=== PATIENT | male | born 1985 | race Two or more races ===

== ENCOUNTER 2016-06-08 18:47 | Emergency (ER) | payer SELFPAY ==
[~2016-06-08] VITALS: Ht 210.8 cm; Wt 86.2 kg
[~2016-06-08 18:47] MED LIST: CIPROFLOXACIN500 M2 ORAL; IBUPROFEN600 MG ORAL; NKM
[2016-06-08 19:24] VITALS: BP 154/91
[2016-06-08] MEDS ORDERED: Fluorescein Strips LEFT EYE ONE (19:30)
[2016-06-08] MEDS ORDERED: Proparacaine 0.5% Opth Soln 15ml LEFT EYE ONE (19:30)
[2016-06-08] MEDS ORDERED: OCUFLOX5 ML OP (20:08)
[2016-06-08 20:18] VITALS: BP 114/82
--- NOTE | 2016-06-08 20:39 | Emergency Room Report ---
History of Present Illness General Chief Complaint: Eye Problems Source: Patient Present Illness HPI The patient is a 30-year-old male presenting for left eye pain which began yesterday. The patient states that she was wearing safety goggles and using metal for sauldering but he states he experienced Moses which flew into the left eye. Pain is described as a 10 out of 10 burning sensation and does not radiate from the eye. Pain is relieved when he closes his eye. He denies any previous injury to the eye. He states that he copiously irrigated the eye after the injury. He has not noticed any bleeding or discharge from the eye. He denies any other symptoms Allergies: Coded Allergies: ACETAMINOPHEN (Verified Allergy, Unknown, 02/22/15) Patient History Past Medical History: see triage record Pertinent Family History: none Reviewed Nursing Documentation: PMH: Agreed, PSxH: Agreed Nursing Documentation-PMH Past Medical History: No History, Except For Hx Hypertension: Yes Review of Systems All Other Systems: negative except mentioned in HPI Physical Exam Vital Signs Date Time Temp Pulse Resp B/P Pulse Ox O2 Delivery O2 Flow Rate FiO2 06/08/16 19:20 98.2 78 18 154/91 100 Room Air Sp02 EP Interpretation: reviewed, normal General Appearance: no apparent distress, alert, GCS 15, non-toxic Head: normocephalic, atraumatic Eyes: left eye fluoroscene uptake - 1cm linear abrasion to medial conjunctiva, bilateral eye EOMI, bilateral eye PERRL ENT: hearing grossly normal, normal pharynx, no angioedema, normal voice Neck: full range of motion, supple/symm/no masses Respiratory: speaking full sentences Neurologic: alert, oriented x3, responsive, motor strength/tone normal, sensory intact, speech normal Psychiatric: judgement/insight normal, memory normal, mood/affect normal, no suicidal/homicidal ideation Skin: normal color, no rash, warm/dry, well hydrated Lymphatic: no adenopathy Medical Decision Making PA Attestation Dr. Santiago is my supervising physician. Patient management was discussed with my supervising physician Diagnostic Impression: Primary Impression: Conjunctival abrasion Qualified Codes: S05.02XA - Injury of conjunctiva and corneal abrasion without foreign body, left eye, initial encounter ER Course The patient is a 30-year-old male presenting for left eye pain Differential diagnoses considered but not limited to allergic conjunctivitis, abrasion, bacterial conjunctivitis, viral conjunctivitis, blepharitiis, hordeolum Physical exam: No apparent distress. PERRL. Left eye has mild injection. No eyelid edema. EOMI Proparacaine was applied to the affected eye and then fluoroscene strip was applied to bottom internal eyelid. UV light was used to assess for increased uptake. A less than 1 cm vertical linear uptake of dye is seen of the medial conjunctiva The patient is discharged home and told to followup with theater company producer. He is given ocular antibiotics as precaution. ER precautions are given Last Vital Signs Date Time Temp Pulse Resp B/P Pulse Ox O2 Delivery O2 Flow Rate FiO2 06/08/16 19:20 98.2 78 18 154/91 100 Room Air Status: improved Disposition: HOME, SELF-CARE Condition: Improved Scripts Ofloxacin (OCUFLOX) 5 Ml Drops 2 DROP OP QID, #5 ML Prov: ISREAL DE JESUS 06/08/16 Patient Instructions: Corneal Abrasion Additional Instructions: I discussed my findings with the patient. All questions and concerns have been answered. Treatment and medication compliance have been addressed. I advised the patient that they need to follow up with PMD in 3-5 days. Return to ED if symptoms worsen, new symptoms arise, or if needed for any reason. Patient verbalized understanding of discharge instructions. The patient is advised to follow up with theater company producer ISREAL DE JESUS Jun 08, 2016 20:39
== END 2016-06-08 20:18 | disposition home or self-care (01) ==
LOC: EMR 19:57
DX: S05.02XA Injury of conjunctiva and corneal abrasion without foreign body, left eye, initial encounter (principal); I10 Essential (primary) hypertension; Z88.6 Allergy status to analgesic agent; W20.8XXA Other cause of strike by thrown, projected or falling object, initial encounter; Y92.9 Unspecified place or not applicable; Y99.8 Other external cause status
CPT/HCPCS: 99283